=== PATIENT | male | born 1990 | race African-American/Black ===

== ENCOUNTER 2018-02-25 18:20 | Emergency (ER) | payer OTHER ==
[2018-02-25 18:31] VITALS: RESP 18
[2018-02-25] MEDS ORDERED: ACETAMINOPHEN TAB 500 MG TAB PO STA (18:42)
[2018-02-25] MEDS ORDERED: IBUPROFEN 600 MG TAB PO STA (18:42)
--- NOTE | 2018-02-25 18:52 | ED ---
ENT HPI - General Chief complaint: ENT Stated complaint: Sore throat Time Seen by Provider: 02/25/18 18:38 Source: patient, RN notes reviewed Mode of arrival: ambulatory Limitations: no limitations - History of Present Illness Initial comments: This is a 27-year-old male who presents to the emergency department with chief complaint of sore throat. Patient states that he developed a sore throat 5 days ago. He states that he has also been experiencing fatigue, chills, cold sweats and nausea. On presentation, patient does have a fever. Patient states he was unaware that he has been having fevers. Denies any difficulty breathing or chest pain. Denies abdominal pain, diarrhea or constipation. Denies cough, ear pain, myalgias or rhinorrhea. He states that he has not been taking any medications. - Related Data Previous Rx's Medication Instructions Recorded Chlorhexidine Gluconate [Peridex] 15 ml PO BID 5 Days ml 07/07/16 Penicillin V Potassium [Pen Vee K] 500 mg PO QID #28 tab 07/07/16 Acetaminophen [Tylenol] 500 mg PO Q4-6H PRN #20 tab 02/25/18 Amoxicillin 875 mg PO Q12HR #20 tablet 02/25/18 Ibuprofen 600 mg PO Q6HR #20 tablet 02/25/18 Allergies Allergy/AdvReac Type Severity Reaction Status Date / Time No Known Allergies Allergy Verified 02/25/18 18:31 Review of Systems ROS Statement: Those systems with pertinent positive or pertinent negative responses have been documented in the HPI. ROS Other: All systems not noted in ROS Statement are negative. Past Medical History Past Medical History: No Reported History History of Any Multi-Drug Resistant Organisms: None Reported Past Surgical History: No Surgical Hx Reported Past Psychological History: No Psychological Hx Reported Smoking Status: Current every day smoker Past Alcohol Use History: Occasional Past Drug Use History: None Reported General Exam - General Exam Comments Initial Comments: General: Awake and alert, well-developed; in no apparent distress. HEENT: Head atraumatic, normocephalic. Pupils are equal, round and reactive to light. Extraocular movements intact. Oropharynx moist with erythema, bilateral tonsillar enlargement and exudates. Neck: Supple. Normal ROM. Tender anterior cervical lymphadenopathy. Cardiovascular: Regular rate and rhythm. No murmurs, rubs or gallops. Chest symmetrical. Respiratory: Lungs clear to auscultation bilaterally. No wheezes, rales or rhonchi. Normal respiratory effort with no use of accessory muscles. Musculoskeletal: Normal ROM, no tenderness bilateral upper and lower extremities. Ambulating normally. Skin: [place], warm and dry without rashes or lesions. Neurological: Alert and oriented x3. CN II-XII grossly intact. Speech is fluent and answers are appropriate. No focal neuro deficits. Psychiatric: Normal mood and affect. No overt signs of depression or anxiety noted. Limitations: no limitations Course Vital Signs 02/25/18 18:29 Temperature 101.3 F H Pulse Rate 94 Respiratory 18 Rate Blood Pressure 131/75 O2 Sat by Pulse 97 Oximetry Medical Decision Making - Medical Decision Making This is a 27-year-old male who presents to the emergency department with chief complaint of sore throat 5 days. On presentation, patient is febrile. He was given doses of Tylenol and Motrin. Oropharynx is erythematous with bilateral tonsillar enlargement and exudates noted. There is tender cervical lymphadenopathy. Rapid strep and EBV heterophile were negative. However, based on patient's history and physical examination, he will be treated for strep pharyngitis. Vital signs are stable and patient is in no acute distress. He will be discharged home. Patient is in agreement with plan and voices understanding. All questions were answered. - Lab Data Lab Results 02/25/18 02/25/18 Range/Units 18:35 19:05 Heterophile Antibody Negative (Negative) Group A Strep Rapid Negative (Negative) Disposition Clinical Impression: Streptococcal sore throat Disposition: HOME SELF-CARE Condition: Good Instructions: Strep Throat (ED) Additional Instructions: Please take medications as prescribed. Please treat fevers by taking Tylenol and Motrin. Please follow up with primary care provider within 1-2 days. Return to emergency department if symptoms should worsen or any concerns arise. Prescriptions: Acetaminophen [Tylenol] 500 mg PO Q4-6H PRN #20 tab PRN Reason: Fever Amoxicillin 875 mg PO Q12HR #20 tablet Ibuprofen 600 mg PO Q6HR #20 tablet Referrals: None,Stated [Primary Care Provider] - 1-2 days Time of Disposition: 19:52
[2018-02-25 20:08] VITALS: BP 115/60; PULSE 80; TEMP 98
== END 2018-02-25 20:08 | disposition home or self-care (01) ==
LOC: EC 18:20
DX: J02.0 Streptococcal pharyngitis (principal); F17.200 Nicotine dependence, unspecified, uncomplicated
CPT/HCPCS: 36415; 86308; 87081; 87430; 99283

== ENCOUNTER 2021-08-19 16:38 | Emergency (ER) | payer OTHER ==
[2021-08-19 16:43] VITALS: BP 154/98; PULSE 95; RESP 18; TEMP 97.9
--- NOTE | 2021-08-19 17:11 | ED ---
Wound/Laceration HPI - General Chief Complaint: Wound/Laceration Stated Complaint: [facility] L hand injury Time Seen by Provider: 08/19/21 16:51 Source: patient Mode of arrival: ambulatory Limitations: no limitations - History of Present Illness Initial Comments: Is a 31-year-old male who presents emergent department for left index finger injury. The patient states that he smashed his finger underneath a very heavy chain at work. He states he immediately had pain and bleeding. He believes he broke his finger. He denies any numbness to the extremity. Denies any other injuries. Unsure of tetanus status. No other complaints. - Related Data Previous Rx's Medication Instructions Recorded Chlorhexidine Gluconate [Peridex] 15 ml PO BID 5 Days ml 07/07/16 Penicillin V Potassium [Pen Vee K] 500 mg PO QID #28 tab 07/07/16 Acetaminophen [Tylenol] 500 mg PO Q4-6H PRN #20 tab 02/25/18 Amoxicillin 875 mg PO Q12HR #20 tablet 02/25/18 Ibuprofen 600 mg PO Q6HR #20 tablet 02/25/18 Cephalexin [Keflex] 500 mg PO Q6HR 5 Days #20 cap 08/19/21 HYDROcodone/APAP 5-325MG [[place] 1 tab PO Q6HR PRN 3 Days #6 tab 08/19/21 5-325] Allergies Allergy/AdvReac Type Severity Reaction Status Date / Time No Known Allergies Allergy Verified 08/19/21 16:40 Review of Systems ROS Statement: Those systems with pertinent positive or pertinent negative responses have been documented in the HPI. ROS Other: All systems not noted in ROS Statement are negative. Past Medical History Past Medical History: No Reported History History of Any Multi-Drug Resistant Organisms: None Reported Past Surgical History: No Surgical Hx Reported Past Psychological History: No Psychological Hx Reported Smoking Status: Never smoker Past Alcohol Use History: Occasional Past Drug Use History: None Reported General Exam - General Exam Comments Initial Comments: Constitutional: Awake alert is anxious and uncomfortable Head: Normocephalic atraumatic Eyes: no conjunctival injection No scleral icterus EOMI Neck: No JVD Supple Heart: Regular rate rhythm normal S1-S2 no murmurs Lungs: Clear to auscultation bilaterally No wheezing No rales Abdomen: Soft nondistended nontender Extremities: Non edematous DP pulses intact Radial pulses intact, the patient has an extensive laceration with degloving to the distal aspect of the left index finger. There is exposed bone of the distal phalanx. The tip of the finger is volarly displaced however he states he has sensation to the tip. Bleeding is somewhat controlled. Does not appear contaminated. The patient is able to bend the finger and the distal pharynx does appear to bend. He is also able to straighten the finger. There is a little bit of tenderness to the distal phalanx of the middle finger on the left hand as well. Neuro: A&Ox3 No focal neurologic deficits, patient states that he can feel the tip of the index finger Psych: Appropriate mood and affect Limitations: no limitations Course Vital Signs 08/19/21 16:41 Temperature 97.9 F Pulse Rate 95 Respiratory 18 Rate Blood Pressure 154/98 O2 Sat by Pulse 100 Oximetry Procedures - Laceration Laceration #1 Consent Obtained: verbal consent Site: hand Size (cm): 3 Description: linear Depth: simple, single layer Anesthetic Used: lidocaine 1% Anesthesia Technique: local infiltration, nerve block Amount (mls): 6 Pre-repair: wound explored, irrigated extensively, deep structures intact Type of Sutures: nylon Size of Sutures: 5-0 Number of Sutures: 7 Technique: simple, interrupted Patient Tolerated Procedure: well, no complications Medical Decision Making - Medical Decision Making Is a 31-year-old male who presents emergency department for a finger laceration. The patient sustained a tuft fracture of the left index finger that was volarly displaced. There was a degloving of the distal aspect of the distal phalanx. I reviewed the case with Dr. Cunha's son on the phone who agreed with washout and loosely closing. Following up in the office tomorrow for hand specialty. The patient tolerated this well. The wound was irrigated extensively with approximately 750 mL of saline. 7 sutures were used to help to close the wound. I did place 2 sutures through the nail to help hold the nail into place and hopefully salvage the nailbed. Patient will be given [place] and Keflex and follow-up with Dr. Cunha'son tomorrow. Disposition Clinical Impression: Finger laceration, Open fracture of tuft of distal phalanx of finger Disposition: HOME SELF-CARE Condition: Stable Instructions (If sedation given, give patient instructions): Finger Laceration (ED) Prescriptions: Cephalexin [Keflex] 500 mg PO Q6HR 5 Days #20 cap HYDROcodone/APAP 5-325MG [[place] 5-325] 1 tab PO Q6HR PRN 3 Days #6 tab PRN Reason: Pain Is patient prescribed a controlled substance at d/c from ED?: Yes When asked, does pt state using other controlled substances?: No If prescribed controlled substance>3 days was MAPS reviewed?: Prescribed <3 Days If opioid is for acute pain is fill amount 7 days or less?: Yes If Rx opioid, was Start Talking consent form obtained?: Yes Referrals: Sanchez Kamara MD [Primary Care Provider] - 1-2 days Wilber Rushing DO [Doctor of Osteopathic Medicine] - 1-2 days
[2021-08-19] MEDS ORDERED: LIDOCAINE 1% INJ 10MG/ML (20 ML MDV) SQ ONE (17:12)
[2021-08-19] MEDS ORDERED: ceFAZolin 1,000 MG VIAL (IM USE) IM STA (17:12)
[2021-08-19] MEDS ORDERED: DIPH,PERTUS(ACELL)TETVAC-LF 0.5 ML VIAL IM ONE (17:21)
--- NOTE | 2021-08-19 18:05 | XR ---
Result: Clinical History: Pain status post laceration. Comparison: None available. Technique: 3 views of the left hand. Findings: There is completely displaced fracture of the index finger distal phalangeal tuft with overlying soft tissue injury. There is additional small nondisplaced fracture of the middle finger distal phalangea l tuft. No evidence of dislocation. There is no definite radiopaque foreign body seen. Impression: Index and middle finger distal phalangeal tuft fractures. No radiopaque foreign body.
== END 2021-08-19 19:13 | disposition home or self-care (01) ==
LOC: EC 16:38
DX: S62.631B Displaced fracture of distal phalanx of left index finger, initial encounter for open fracture (principal); S61.211A Laceration without foreign body of left index finger without damage to nail, initial encounter; Z23 Encounter for immunization; W23.0XXA Caught, crushed, jammed, or pinched between moving objects, initial encounter; Y99.0 Civilian activity done for income or pay
CPT/HCPCS: 73130; 90715; 99283; 96372; 90471; 12002; J0690; J2001

== ENCOUNTER 2024-11-27 05:16 | Emergency (ER) | payer OTHER ==
[2024-11-27 05:21] VITALS: BP 137/96; PULSE 88; RESP 20; TEMP 97.8
[2024-11-27 06:25] LABS: Glucose,Whole Blood 103 mg/dL (70-110)
--- NOTE | 2024-11-27 06:25 | ED ---
ENT HPI - General Chief complaint: ENT Stated complaint: BI Source: patient Mode of arrival: ambulatory - History of Present Illness Initial comments: This patient is a 34-year-old man who presents with complaint of sore throat going back 5 to 7 days. The patient has not noted any accompanying fever. Occasional cough, nonproductive. The patient is able to eat and drink. No change in voice. MD complaint: sore throat Onset/Timin -: days(s) Location: throat Severity: moderate Quality: burning, aching Consistency: constant Improves with: none Worsens with: none Associated Symptoms: sore throat - Related Data Previous Rx's Medication Instructions Recorded Amoxic-Pot Clav 875-125Mg 1 tab PO Q12HR 5 Days #10 tab 01/06/23 [Augmentin 875-125] HYDROcodone/APAP 5-325MG [[place] 1 tab PO Q6HR PRN 3 Days #12 tab 01/06/23 5-325] Ibuprofen [Motrin] 600 mg PO Q8HR PRN #30 tab 01/06/23 Simethicone 40 mg/0.6 ml Drops 40 mg PO QID ml 01/06/23 [Mylicon Drops] Clotrimazole Arabella [Mycelex 10 mg MUCOUS MEM QID #40 arabella 11/27/24 Arabella] Allergies Allergy/AdvReac Type Severity Reaction Status Date / Time No Known Allergies Allergy Verified 11/27/24 05:21 Review of Systems ROS Statement: Those systems with pertinent positive or pertinent negative responses have been documented in the HPI. ROS Other: All systems not noted in ROS Statement are negative. Constitutional: Denies: fever, chills ENT: Reports: throat pain. Denies: ear pain, congestion Respiratory: Reports: cough. Denies: dyspnea, wheezes Cardiovascular: Denies: chest pain, palpitations Gastrointestinal: Denies: abdominal pain, vomiting, diarrhea Genitourinary: Denies: dysuria Skin: Denies: rash Neurological: Denies: headache, weakness Past Medical History Past Medical History: No Reported History History of Any Multi-Drug Resistant Organisms: None Reported Past Surgical History: No Surgical Hx Reported Past Anesthesia/Blood Transfusion Reactions: No Reported Reaction Past Psychological History: No Psychological Hx Reported Smoking Status: Current every day smoker Past Alcohol Use History: Occasional Past Drug Use History: None Reported General Exam General appearance: alert, in no apparent distress, appears intoxicated Head exam: Present: atraumatic, normocephalic Eye exam: Present: normal appearance ENT exam: Present: mucous membranes moist, normal external ear exam, other (The patient does have whitish exudate of tongue. There is some injection of the pharynx. No tonsillar enlargement. Uvula is midline with no edema.) Neck exam: Present: normal inspection, full ROM, lymphadenopathy. Absent: tenderness, meningismus Respiratory exam: Present: normal lung sounds bilaterally. Absent: respiratory distress, wheezes, rales, rhonchi, stridor, accessory muscle use Cardiovascular Exam: Present: regular rate, normal rhythm, normal heart sounds. Absent: systolic murmur, diastolic murmur, rubs GI/Abdominal exam: Present: soft. Absent: organomegaly Neurological exam: Present: alert Skin exam: Present: warm, dry, intact, normal color. Absent: rash Course Vital Signs 11/27/24 05:18 Temperature 97.8 F Pulse Rate 88 Respiratory 20 Rate Blood Pressure 137/96 O2 Sat by Pulse 100 Oximetry Medical Decision Making - Medical Decision Making Was pt. sent in by a medical professional or institution (, PA, B[employer] MECH[employer]IC, urgent care, hospital, or prison...) When possible be specific @ -[No] Did you speak to anyone other than the patient for history (EMS, parent, family, police, friend...)? What history was obtained from this source @ -[No] Did you review nursing and triage notes (agree or disagree)? Why? @ -[I reviewed and agree with nursing and triage notes] Were old charts reviewed (outside hosp., previous admission, EMS record, old EKG, old radiological studies, urgent care reports/EKG's, prison records)? Report findings @ -[No old charts were reviewed] Differential Diagnosis (chest pain, altered mental status, abdominal pain women, abdominal pain men, vaginal bleeding, weakness, fever, dyspnea, syncope, headache, dizziness, GI bleed, back pain, seizure, CVA, palpatations, mental health, musculoskeletal)? @ -[Differential diagnosis sore throat includes infectious pharyngitis, allergic pharyngitis, mass, dehydration, alcohol/tobacco use, this list not exhaustive EKG interpreted by me (3pts min.). @ -[As above] X-rays interpreted by me (1pt min.). @ -[None done] CT interpreted by me (1pt min.). @ -[None done] U/S interpreted by me (1pt. min.). @ -[None done] What testing was considered but not performed or refused? (CT, X-rays, U/S, labs)? Why? @ -[None] What meds were considered but not given or refused? Why? @ -[None] Did you discuss the management of the patient with other professionals (professionals i.e. , PA, [employer] MECH[employer]IC, lab, RT, psych nurse, health care social worker, peer financial counselor, teacher, staff electronic warfare officer, correctional counselor/case manager)? Give summary @ -[No] Was smoking cessation discussed for >3mins.? @ -[No] Was critical care preformed (if so, how long)? @ -[No] Were there social determinants of health that impacted care today? How? (Homelessness, low income, unemployed, alcoholism, drug addiction, transportation, low edu. Level, literacy, decrease access to med. care, alf, rehab)? @ -[No] Was there de-escalation of care discussed even if they declined (Discuss DNR or withdrawal of care, Hospice)? DNR status @ -[No] What co-morbidities impacted this encounter? (DM, HTN, Smoking, COPD, CAD, Cancer, CVA, ARF, Chemo, Hep., AIDS, mental health diagnosis, sleep apnea, morbid obesity)? @ -[None] Was patient admitted / discharged? Hospital course, mention meds given and route, prescriptions, significant lab abnormalities, going to OR and other pertinent info. @ -[Patient is a 34-year-old man with 5 to 7 days of sore throat. The exam largely unremarkable other than patient does have some whitish coating to the tongue. For this reason Accu-Chek obtained which is normal. Strep is negative. Discussed further follow-up and return parameters. Recommended alcohol cessation until sore throat resolves. Undiagnosed new problem with uncertain prognosis? @ -[No] Drug Therapy requiring intensive monitoring for toxicity (Heparin, Nitro, Insulin, Cardizem)? @ -[No] Were any procedures done? @ -[No] Diagnosis/symptom? @ -[Acute pharyngitis Acute, or Chronic, or Acute on Chronic? @ -[Acute Uncomplicated (without systemic symptoms) or Complicated (systemic symptoms)? @ -[Uncomplicated Side effects of treatment? @ -[No] Exacerbation, Progression, or Severe Exacerbation? @ -[No] Poses a threat to life or bodily function? How? (Chest pain, [place], [place], pneumonia, PE, COPD, DKA, ARF, appy, cholecystitis, CVA, Diverticulitis, Homicidal, Suicidal, threat to staff... and all critical care pts) @ -[No] All treatments are based on ideal body weight as in ED triage - Lab Data Lab Results 11/27/24 11/27/24 Range/Units 05:29 06:24 POC Glucose (mg/dL) 103 (70-110) mg/dL POC Glu Consulting Systems Engineer ID Osman Wasserman A Strep (PCR) NOT DETECTED (Not Detectd) Disposition Clinical Impression: Pharyngitis Disposition: HOME SELF-CARE Condition: Good Instructions (If sedation given, give patient instructions): Oral Candidiasis (ED) Prescriptions: Clotrimazole Arabella [Mycelex Arabella] 10 mg MUCOUS MEM QID #40 arabella Is patient prescribed a controlled substance at d/c from ED?: No Referrals: Sanchez Kamara MD [Primary Care Provider] - 1-2 days
[2024-11-27] MEDS: AZITHROMYCIN 500 MG TAB PO STA (07:07)
[2024-11-27] MEDS: LACTATED RINGERS 1,000 ML BAG IV STA (07:35)
== END 2024-11-27 07:38 | disposition home or self-care (01) ==
LOC: EC 05:16
DX: J02.9 Acute pharyngitis, unspecified (principal); F17.200 Nicotine dependence, unspecified, uncomplicated
CPT/HCPCS: 36415; 87651; 99284